=== PATIENT | female | born 1940 | race Caucasian/White ===

== ENCOUNTER 2019-02-15 17:51 | Emergency (ER) | payer MEDICARE ==
--- NOTE | 2019-02-15 18:01 | Emergency Department Report ---
Blank Doc - Documentation Documentation: This is a 79-year-old female that presents lower abdminal pain. Denies any n/v. Denies any other complaints or symptoms. This initial assessment/diagnostic orders/clinical plan/treatment(s) is/are subject to change based on patient's health status, clinical progression and re- assessment by fellow clinical providers in the ED. Further treatment and workup at subsequent clinical providers discretion. Patient/guardians urged not to elope from the ED as their condition may be serious if not clinically assessed and managed. Initial orders include: 1- Patient sent to MAIN ED for further evaluation and treatment 2- UA 3- labs
[2019-02-15 18:29] LABS: Basophils % (Auto) 0.4 % (0.0-1.8); Eosinophils # (Auto) 0.1 K/mm3 (0.0-0.4); Eosinophils % (Auto) 1.4 % (0.0-4.3); Hematocrit 35.9 % (30.3-42.9); Lymphocytes # (Auto) 1.8 K/mm3 (1.2-5.4); Lymphocytes % (Auto) 19.8 % (13.4-35.0); Mean Corpuscular HGB Conc 33 % (30-34); Mean Corpuscular Volume 87 fl (79-97); Monocytes # (Auto) 0.7 K/mm3 (0.0-0.8); Monocytes % (Auto) 7.2 % (0.0-7.3); Platelet Count 262 K/mm3 (140-440); Red Blood Count 4.13 M/mm3 (3.65-5.03); Red Cell Distribution Width 13.7 % (13.2-15.2)
[2019-02-15 18:48] LABS: Albumin 3.8 g/dL (3.9-5); Calcium 8.8 mg/dL (8.4-10.2)
[2019-02-15 20:40] LABS: Bilirubin,Urine NEG (Negative); Blood,Urine NEG (Negative); Color,Urine Straw (Yellow); Mucus,Urine FEW /HPF; Protein,Urine <15 mg/dL mg/dL (Negative); Urobilinogen,Urine < 2.0 mg/dL (<2.0)
[2019-02-15] MEDS ORDERED: ZOFRAN IV ONE (20:54)
[2019-02-15] MEDS ORDERED: NACL 0.9% 500 ML 500 ML IV ONE (20:54)
[2019-02-15] MEDS ORDERED: TORADOL IV ONE (20:54)
--- NOTE | 2019-02-15 21:31 | Emergency Department Report ---
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 Denies any n/v. denies fever or chills no back pain no constipation or diarrhea , no community relations police lieutenant problem, pt states pain is 5/10 aching and cramping there is no relieving or exacerbating factors pt is tolerating po intake without n/v, Complaint: abdominal pain Onset/Timin -: week(s) Location: LLQ, RLQ Radiation: LLQ, RLQ Migration to: no migration Severity: moderate Severity scale (0 -10): 5 Quality: cramping, aching Consistency: constant Improves With: nothing Worsens With: nothing Associated Symptoms: denies: nausea, vomiting, diarrhea, fever, constipation, dysuria, melena, hematuria, anorexia - Related Data Home Medications Medication Instructions Recorded Confirmed Last Taken Albuterol Sulfate [Ventolin HFA] 2 inhalation PO PRN 08/06/13 02/20/14 07/06/13 Gabapentin [Neurontin] 300 mg PO DAILY 08/06/13 02/20/14 02/19/14 08:00 300mg Lisinopril/Hydrochlorothiazide 0.5 each PO BID 08/06/13 02/20/14 02/19/14 08:00 [Zestoretic 20-12.5 mg] 0.5tab Omeprazole [PriLOSEC] 40 mg PO DAILY 08/06/13 02/20/14 02/19/14 08:00 40mg Tiotropium [Spiriva] 1 cap PO DAILY 08/06/13 02/20/14 08/05/13 Tramadol HCl [traMADol ER 300 MG] 325 mg PO Q48HR 08/06/13 02/20/14 08/05/13 metFORMIN [Glucophage] 500 mg PO DAILY 08/06/13 02/20/14 02/18/14 08:00 500mg Previous Rx's Medication Instructions Recorded Last Taken Type Carvedilol [Coreg] 12.5 mg PO BID #60 tablet 02/20/14 Unknown Rx traMADol [Ultram] 50 mg PO Q6HR PRN #12 tablet 02/15/19 Unknown Rx Allergies Allergy/AdvReac Type Severity Reaction Status Date / Time No Known Allergies Allergy Verified 08/06/13 10:20 ED Review of Systems ROS: Stated complaint: STOMACH PAIN Other details as noted in HPI Constitutional: denies: chills, fever Eyes: denies: eye pain, eye discharge, vision change ENT: denies: ear pain, throat pain Respiratory: denies: cough, shortness of breath, wheezing Cardiovascular: denies: chest pain, palpitations Endocrine: no symptoms reported Gastrointestinal: abdominal pain. denies: nausea, vomiting, diarrhea, constipation, hematemesis, melena, hematochezia Genitourinary: denies: urgency, dysuria, frequency, hematuria, discharge Musculoskeletal: denies: back pain, joint swelling, arthralgia Skin: denies: rash, lesions Neurological: denies: headache, weakness, paresthesias Psychiatric: denies: anxiety, depression Hematological/Lymphatic: denies: easy bleeding, easy bruising ED Past Medical Hx - Past Medical History Hx Hypertension: Yes Hx Diabetes: Yes Hx Asthma: Yes Hx COPD: Yes (on spiriva and ventolin inhaler. use last last month) - Surgical History Past Surgical History?: Yes Hx Appendectomy: Yes - Social History Smoking Status: Never Smoker Substance Use Type: None - Medications Home Medications: Home Medications Medication Instructions Recorded Confirmed Last Taken Type Albuterol Sulfate [Ventolin HFA] 2 inhalation PO PRN 08/06/13 02/20/14 07/06/13 History Gabapentin [Neurontin] 300 mg PO DAILY 08/06/13 02/20/14 02/19/14 08:00 History 300mg Lisinopril/Hydrochlorothiazide 0.5 each PO BID 08/06/13 02/20/14 02/19/14 08:00 History [Zestoretic 20-12.5 mg] 0.5tab Omeprazole [PriLOSEC] 40 mg PO DAILY 08/06/13 02/20/14 02/19/14 08:00 History 40mg Tiotropium [Spiriva] 1 cap PO DAILY 08/06/13 02/20/14 08/05/13 History Tramadol HCl [traMADol ER 300 MG] 325 mg PO Q48HR 0202/20/14 08/05/13 History metFORMIN [Glucophage] 500 mg PO DAILY 08/06/13 02/20/14 02/18/14 08:00 History 500mg Carvedilol [Coreg] 12.5 mg PO BID #60 tablet 02/20/14 Unknown Rx traMADol [Ultram] 50 mg PO Q6HR PRN #12 tablet 02/15/19 Unknown Rx ED Physical Exam - General Limitations: No Limitations General appearance: alert, in no apparent distress - Head Head exam: Present: atraumatic, normocephalic - Eye Eye exam: Present: normal appearance, PERRL, EOMI Pupils: Present: normal accommodation - ENT ENT exam: Present: normal orophraynx, mucous membranes moist - Neck Neck exam: Present: normal inspection, full ROM. Absent: tenderness, lymphadenopathy - Respiratory Respiratory exam: Present: normal lung sounds bilaterally. Absent: respiratory distress, wheezes, stridor, chest wall tenderness - Cardiovascular Cardiovascular Exam: Present: regular rate, normal rhythm, normal heart sounds. Absent: systolic murmur, diastolic murmur, rubs, gallop - GI/Abdominal GI/Abdominal exam: Present: soft, normal bowel sounds. Absent: distended, tenderness, guarding, rebound, rigid, bruit, hernia - Rectal Rectal exam: Present: deferred - Extremities Exam Extremities exam: Present: normal inspection, full ROM, normal capillary refill. Absent: tenderness, pedal edema, joint swelling - Back Exam Back exam: Present: normal inspection, full ROM. Absent: tenderness, CVA tenderness (R), CVA tenderness (L), muscle spasm, paraspinal tenderness, rash noted - Neurological Exam Neurological exam: Present: alert, oriented X3, CN II-XII intact, normal gait, reflexes normal. Absent: motor sensory deficit - Psychiatric Psychiatric exam: Present: normal affect, normal mood - Skin Skin exam: Present: warm, dry, intact, normal color. Absent: rash ED Course Vital Signs 02/15/19 02/15/19 18:00 21:42 Temperature 98.2 F Pulse Rate 83 Respiratory 18 16 Rate Blood Pressure 122/79 [Left] O2 Sat by Pulse 98 Oximetry ED Medical Decision Making - Lab Data Result diagrams: 02/15/19 18:16 02/15/19 18:16 Labs 02/15/19 02/15/19 02/15/19 03:54 18:16 18:16 WBC 9.2 RBC 4.13 Hgb 12.0 Hct 35.9 MCV 87 MCH 29 MCHC 33 RDW 13.7 Plt Count 262 Lymph % (Auto) 19.8 Hanson % (Auto) 7.2 Eos % (Auto) 1.4 Baso % (Auto) 0.4 Lymph # 1.8 Hanson # 0.7 Eos # 0.1 Baso # 0.0 Seg Neutrophils % 71.2 H Seg Neutrophils # 6.5 Sodium 136 L Potassium 3.9 Chloride 98.1 Carbon Dioxide 26 Anion Gap 16 BUN 14 Creatinine 1.2 Estimated GFR 44 BUN/Creatinine Ratio 12 Glucose 165 H Calcium 8.8 Total Bilirubin 0.30 AST 28 ALT 13 Alkaline Phosphatase 127 Total Protein 7.3 Albumin 3.8 L Albumin/Globulin Ratio 1.1 Lipase 23 Urine Color Straw Urine Turbidity Clear Urine pH 6.0 Ur Specific Kinnear 1.009 Urine Protein <15 mg/dl Urine Glucose (UA) Neg Urine Ketones Neg Urine Blood Neg Urine Nitrite Neg Urine Bilirubin Neg Urine Urobilinogen < 2.0 Ur Leukocyte Esterase Neg Urine WBC (Auto) 1.0 Urine RBC (Auto) 1.0 U Epithel Cells (Auto) 1.0 Urine Mucus Few - Radiology Data Radiology results: report reviewed, image reviewed Ordering Physician: VESTA UMANA NP Date of Service: 02/15/19 Procedure(s): CT abdomen pelvis wo con Accession Number(s): [id number] cc: VESTA UMANA NP CT of the abdomen and pelvis without contrast INDICATION: Abdominal pain COMPARISON: None FINDINGS: Lung bases are clear. Gallbladder is been removed. No biliary tree dilation. The liver, spleen, pancreas, adrenal glands and kidneys show no abnormalities. No fluid or adenopathy in the upper abdomen. Small amount of splenic capsular calcification is probably due to old trauma and insignificant. CT of the pelvis shows a small umbilical hernia containing fat. No uterine or adnexal masses with the uterus showing age-related atrophy. There is no pelvic fluid or adenopathy. No hernia or bowel obstruction. There are scattered colonic diverticula without diverticulitis. No appendicitis is seen. No significant skeletal lesion. IMPRESSION: No significant abnormality. Automated exposure control was utilized to diminish radiation dose. Signer Name: Drew Kimball MD Signed: 02/15/2019 9:50 PM Workstation Name: [id number] Transcribed By: ANJELICA Dictated By: Drew Kimball MD Electronically Authenticated By: Drew Kimball MD Signed Date/Time: 02/15/192149 DD/ 46 TD/TT: - Medical Decision Making CT abdomen and pelvis consistent for small umbilical hernia containing fat and no strap muscle ischemia plan NSAIDs muscle relaxants follow moist heat therapy return to emergency in 24 you rs if neended. Critical Care Time: No Critical care attestation.: If time is entered above; I have spent that time in minutes in the direct care of this critically ill patient, excluding procedure time. ED Disposition Clinical Impression: Umbilical hernia Qualifiers: Obstruction and gangrene presence: with gangrene Qualified Code(s): K42.1 - Umbilical hernia with gangrene Abdominal pain Qualifiers: Abdominal location: unspecified location Qualified Code(s): R10.9 - Unspecified abdominal pain Disposition: - TO HOME OR SELFCARE Is pt being admited?: Yes Does the pt Need Aspirin: No Condition: Stable Instructions: Abdominal Pain (ED) Prescriptions: traMADol [Ultram] 50 mg PO Q6HR PRN #12 tablet PRN Reason: Pain Referrals: JAI JIMENEZ MD [Staff Physician] - 3-5 Days Forms: Work/School Release Form(ED) Time of Disposition: 22:38
--- NOTE | 2019-02-15 21:55 | Cat Scan Report ---
CT of the abdomen and pelvis without contrast INDICATION: Abdominal pain COMPARISON: None FINDINGS: Lung bases are clear. Gallbladder is been removed. No biliary tree dilation. The liver, spl een, pancreas, adrenal glands and kidneys show no abnormalities. No fluid or adenopathy in the upper abdomen. Small amount of splenic capsular calcification is probably due to old trauma and insignifica nt. CT of the pelvis shows a small umbilical hernia containing fat. No uterine or adnexal masses with the uterus showing age-related atrophy. There is no pelvic fluid or adenopathy. No hernia or bowel obstr uction. There are scattered colonic diverticula without diverticulitis. No appendicitis is seen. No s ignificant skeletal lesion. IMPRESSION: No significant abnormality. Automated exposure control was utilized to diminish radiation dose. Signer Name: Drew Kimball MD Signed: 02/15/2019 9:50 PM Workstation Name: [id number]
[2019-02-15 23:32] VITALS: BP 118/77
== END 2019-02-15 23:31 | disposition home or self-care (01) ==
LOC: ED 17:51
DX: K42.9 Umbilical hernia without obstruction or gangrene (principal); I10 Essential (primary) hypertension; E11.9 Type 2 diabetes mellitus without complications; J44.9 Chronic obstructive pulmonary disease, unspecified; Z90.49 Acquired absence of other specified parts of digestive tract; Z79.899 Other long term (current) drug therapy
CPT/HCPCS: 36415; 74176; 80053; 81001; 83690; 85025; 96374; 96375; 99284; J1885; J2405; J7040